=== PATIENT | male | born 1945 | race African-American/Black ===

== ENCOUNTER 2021-03-01 09:47 | Day surgery (SDC) | payer OTHER ==
--- NOTE | 2021-02-24 13:26 | RAD REPORT ---
EXAM DESCRIPTION: Raghavendra Valladares (2 Views)02/24/2021 1:15 pm CLINICAL HISTORY: Preop for hernia surgery COMPARISON: 2018 FINDINGS: The lungs appear clear of acute infiltrate. The heart is normal size IMPRESSION: No acute abnormalities displayed
[2021-02-24 13:32] LABS: Basophils % 0.6 % (0-1.3); Hematocrit 42.9 % (39.6-49.0); Lymphocytes % 31.3 % (15.3-44.8); MPV 7.5 fL (7.6-11.3); RBC Red Blood Cell Count 5.15 M/uL (4.33-5.43)
[2021-02-25 12:35] LABS: BUN Blood Urea Nitrogen 14 mg/dL (7-18); Bicarbonate 26 mmol/L (21-32); Glucose Level 94 mg/dL (74-106); Potassium 4.1 mmol/L (3.5-5.1); Sodium Level 144 mmol/L (136-145)
[2021-03-01] MEDS ORDERED: Ringers Lactate 1,000 ML IV ONE (10:21)
[2021-03-01] MEDS ORDERED: CEFAZOLIN/SWI 1gm 1 GM/10 ML SYR ONE (10:21)
[2021-03-01] MEDS ORDERED: ACETAMINOPHEN 500 MG TAB ONE (10:41)
[2021-03-01] MEDS ORDERED: CELECOXIB 100 MG CAPSULE ONE (10:41)
[2021-03-01] MEDS ORDERED: FENTANYL CITR 100 MCG/2 ML ONE (10:45)
[2021-03-01] MEDS ORDERED: propofoL 200 MG/20 ML VIAL IV ONE (10:45)
[2021-03-01] MEDS ORDERED: LIDOCAINE 2% MPF 5 ML VIAL ONE (10:46)
[2021-03-01] MEDS ORDERED: KETOROLAC 30 MG/ML INJ ONE (10:46)
[2021-03-01] MEDS ORDERED: ONDANSETRON 4 MG/2 ML VIAL ONE (10:49)
--- NOTE | 2021-03-01 12:17 | P.BOP ---
Preoperative diagnosis: tender recurrent Right inguinal hernia Postoperative diagnosis: same Primary procedure: Open repair of tender recurrent Right inguinal hernia Estimated blood loss: <10cc Specimen: hernia content Findings: hernia at the pubis symphysis area Anesthesia: General Complications: None Transferred to: Recovery Room Condition: Good
[2021-03-01] MEDS ORDERED: EPHEDRINE SULF 50 MG/ML VIAL ONE (12:20)
[2021-03-01] MEDS ORDERED: GLYCOPYRROLATE 0.2 MG/ML SYR ONE (12:22)
[2021-03-01] MEDS ORDERED: CODEINE 30MG/APAP 300MG TAB ONE (13:38)
[2021-03-01 15:50] VITALS: BP 114/67; TEMP 97; O2SAT 96
--- NOTE | 2021-03-20 21:11 | DS ---
Date of Discharge: 03/01/2021 Diagnosis: Tender, recurrent right inguinal hernia. Procedure Performed: Open repair of tender, recurrent right inguinal hernia. Disposition: Home. Discharge Instructions: Activity as tolerated. No heavy lifting. Plan: Follow up in my office in 1 week. Call for appointment at [phone]. Keep area dry for 48 fe rs, then may shower. Medications: See orders. ROBERT/MODNohemy Voice ID: [id number] Report ID: [id number]
--- NOTE | 2021-03-20 21:26 | OP ---
Date of Procedure: 03/01/2021 Surgeon: Eladio Bradshaw MD Preoperative Diagnosis: Tender and recurrent right inguinal hernia. Postoperative Diagnosis: Tender and recurrent right inguinal hernia. Procedure: Open repair of tender, recurrent right inguinal hernia. Specimen: Hernia content. Finding: Hernia at the area near the pubis symphysis. Anesthesia: General plus local. Indication: This is the case of a male, who comes to us with right inguinal pain, discomfort, a lump . Diagnosed with recurrent right inguinal hernia. Benefits, alternatives, and risks of repair with possible mesh use fully explained to the patient, which include, but not limited to infection, bleedi ng, damage to adjacent structures, anesthesia complication, recurrence, NM and even . He also u nderstands this may not relieve any symptoms. He might need more than one surgical intervention. He understood, signed a consent. Procedure In Detail: The patient was brought to the operating room, placed in supine position. Anes thesia was done without complication. The patient previously marked the area of concern. The patien t was brought to the operating room, placed in supine position. Anesthesia was done without complica tion. A time-out was called. The inguinal region was prepped and draped in a sterile fashion. A sm all incision was made over the area partially including previous incision and also a new area where t he patient . The incision was carried down to the Winifred fascia, which was opened under di rect vision. External oblique aponeurosis was opened. We noticed the patient did have the hernia at the area between just at the pubic symphysis at the end of the inguinal canal. The ilioinguinal ner ve and iliohypogastric nerve were protected behind external oblique aponeurosis. We do not see any p roximal hernias. The spermatic cord area looks intact. We were able to remove the contents of that hernia and the risk was reduced and the area was imbricated. As a small area, it does not seem mesh to be used properly. We proceeded to do a direct closure in that area with Prolene in a f hjtip-sy-evqid fashion multiple times. Spermatic cord was protected at all times. The defect was cl osed, looked like a small direct hernia. Blood vessels intact. At that moment, I proceeded to bring the hypogastric nerve and ilioinguinal nerve back into the inguinal canal. Reconstructed the area i n the external oblique aponeurosis making sure the nerves were not included, making sure that the cor d was protected at all times. The area was irrigated. Winifred fascia was closed with 3-0 chromic and the skin was approximated. Sponge count and instrument counts were correct. The patient tolerated the procedure well. The patient was sent to recovery in stable condition. ROBERT/PAT Voice ID: [id number] Report ID: [id number]
== END 2021-03-01 15:30 | disposition home or self-care (01) ==
LOC: OR 09:47
PROVIDERS: ATTEND Surgery
PROC: 0YQ50ZZ Repair Right Inguinal Region, Open Approach (ICD-10-PCS; principal; 2021-03-01 12:30)
DX: K40.91 Unilateral inguinal hernia, without obstruction or gangrene, recurrent (principal); Z20.822 Contact with and (suspected) exposure to COVID-19
CPT/HCPCS: 49520; 93005; 85025; 80048; 36415; 88302; 71046; U0002; J2704; J3010; J0690; J7120; J2405